=== PATIENT | male | born 1985 | race Caucasian/White ===

== ENCOUNTER 2022-07-23 17:19 | Emergency (ER) | payer OTHER, SELFPAY ==
[2022-07-23 17:36] VITALS: BP 115/83; PULSE 69; RESP 18; TEMP 36.3; O2SAT 100; BMI 26.4
--- NOTE | 2022-07-23 17:39 | DI.RAD.S_ITS ---
PROCEDURE: XR RIBS LT MIN 3V W CXR1V INDICATIONS: rib pain after coughing yesterday TECHNIQUE: 2 views of the left ribs were acquired, along with a single view chest. COMPARISON: None. FINDINGS: Surgical changes and devices: None. Bones and chest wall: No fractures or dislocations. No suspicious bony lesions. Overlying soft tissues appear unremarkable. Lungs and pleura: No pleural effusions or pneumothorax. Lungs appear clear. Mediastinum: Mediastinal contours appear normal. Heart size is normal. IMPRESSION: Unremarkable chest and left rib radiographs Approved by: Anand Roberts M.D. on 07/23/2022 at 17:58
--- NOTE | 2022-07-23 19:11 | ED.GENADULT ---
HPI - General Adult General Chief complaint: Upper Respiratory Symptoms Stated complaint: coughed yesterday, rib pain since then Time Seen by Provider: 07/23/22 18:30 Source: patient Mode of arrival: Ambulatory Limitations: no limitations History of Present Illness HPI narrative: Patient is a 29-year-old male who is here for evaluation of left-sided rib pain. He states yesterday he coughed and had a sudden onset of left-sided pain that has been persistent since then. It hurts to touch, move, breathe, cough, sneeze. No fevers. This tried to support the area without much improvement. Related Data Previous Rx's Medication Instructions Recorded cyclobenzaprine 10 mg tablet 10 mg PO TID PRN muscle spasm #10 07/23/22 tabs hydrocodone 5 mg-acetaminophen 325 1 tab PO Q4-6H PRN pain #10 tabs 07/23/22 mg tablet Allergies Allergy/AdvReac Type Severity Reaction Status Date / Time ciprofloxacin [From Cipro] Allergy Verified 07/23/22 17:36 tetracycline Allergy Verified 07/23/22 17:36 Review of Systems Constitutional Constitutional: Reports system reviewed and no additional complaints, except as documented Cardiovascular Cardiovascular: Reports system reviewed and no additional complaints, except as documented Respiratory Respiratory: Reports system reviewed and no additional complaints, except as documented Gastrointestinal Gastrointestinal: Reports system reviewed and no additional complaints, except as documented Musculoskeletal Musculoskeletal: Reports system reviewed and no additional complaints, except as documented Integumentary/Breasts Skin/Breast: Reports system reviewed and no additional complaints, except as documented Neurologic Neurologic: Reports system reviewed and no additional complaints, except as documented Hematologic/Lymphatic On Anticoagulants: No Patient History Social History Smoking Status: Current some day smoker Smoking Status: Current some day smoker alcohol intake frequency: holidays/special occasions only Substance Use Type: does not use Exam Initial Vital Signs Initial Vital Signs: Vital Signs Temperature 97.3 F L 07/23/22 17:36 Pulse Rate 69 07/23/22 17:36 Respiratory Rate 18 07/23/22 17:36 Blood Pressure 115/83 07/23/22 17:36 Pulse Oximetry 100 07/23/22 17:36 Oxygen Delivery Method 07/23/22 17:36 HENTN Head: normal to inspection and normocephalic Chest Chest: normal inspection of the chest, No crepitus and tenderness Resp Effort & Inspection: normal respiratory effort Auscultation: clear to auscultation bilaterally Cardio Rate: regular rate Skin General: no rashes or lesions noted Neuro General: patient alert, patient awake and moves all extremities Extrem General: normal to inspection and capillary refill normal Course Orders Ordered: ED Orders 07/23/22 17:39 XR ribs LT min 3V w CXR1V Stat Vital Signs Vital signs: Vital Signs - 8 hr 07/23/22 19:20 Pulse Rate 73 Blood Pressure 129/74 Pulse Oximetry 97 Oxygen Delivery Method Room Air Medical Decision Making Imaging Data rib x-ray: Radiologist's Impression: [address] [id number] XRay Report Signed Patient: Obed Sahu MR#: [id number] : 1985 Acct:[id number] Age/Sex: 37 / M Date of Service: 07/23/22 Loc: ED Accession Number: [id number] ?? Procedure: XR ribs LT min 3V w CXR1V Ordering Provider: Renetta Collins D.O. PROCEDURE:? XR RIBS LT MIN 3V W CXR1V ? INDICATIONS:? rib pain after coughing yesterday ? TECHNIQUE:? 2 views of the left ribs were acquired, along with a single view chest.? ? COMPARISON:? None. ? FINDINGS:? ? Surgical changes and devices:? None.? ? Bones and chest wall:? No fractures or dislocations.? No suspicious bony lesions.? Overlying soft tissues appear unremarkable.? ? Lungs and pleura:? No pleural effusions or pneumothorax.? Lungs appear clear.? ? Mediastinum:? Mediastinal contours appear normal.? Heart size is normal.? ? IMPRESSION:? Unremarkable chest and left rib radiographs ? Approved by: Anand Roberts M.D. on 07/23/2022 at 17:58? [facility] Narrative Medical decision making narrative: No fractures noted on the x-rays. No respiratory distress. We did discuss the possibility of a nondisplaced rib fracture being in this area despite not seeing 1 on the chest x-ray. Expressed understanding of this. No further workup needed in the emergency department other than trying to support and treat his symptoms. Patient was given strict return precautions. He expressed understanding and agreement. Discharge Plan Departure Patient Disposition: Home Clinical Impression: Rib pain on left side Instructions: DI for Rib Contusion Activity Restrictions/Additional Instructions: It is important that you occasionally take deep breaths. You may need to hold the area with a pillow while you do this in order to try to help with some of the discomfort although it most likely will not make this pain free. Return to the emergency department for any fevers. Take the medications as directed. Return to the emergency department for any new symptoms. Prescriptions: New hydrocodone-acetaminophen 5-325 mg tablet 1 tab PO Q4-6H PRN (Reason: pain) Qty: 10 0RF cyclobenzaprine 10 mg tablet 10 mg PO TID PRN (Reason: muscle spasm) Qty: 10 0RF Referrals: Miscellaneous,Doctor, MD [Primary Care Provider] - Stand Alone Forms: Patient Portal/API
[2022-07-23 19:20] VITALS: BP 129/74; PULSE 73; O2SAT 97
== END 2022-07-23 19:21 | disposition home or self-care (01) ==
PROVIDERS: Emergency Provider Emergency Medicine
DX: R07.81 Pleurodynia (principal)
CPT/HCPCS: 71101; 99283